=== PATIENT | female | born 1980 | race Caucasian/White ===

== ENCOUNTER 2016-08-14 08:37 | Emergency (ER) | payer BC ==
[~2016-08-14] VITALS: Ht 160 cm; Wt 88.9 kg
[~2016-08-14 08:37] MED LIST: APRISO0.375 GM PO; DELTASONE20 M1 PO; FLONASE16 G1 NS; METFORMIN HCL500 MG PO; MYRBETRIQ25 MG PO; NOHOMEMEDS; PRENATAL TABLE1 EAC3 PO; PROBIOTIC1 EAC3 PO; VITAMIN D2000 INTUN PO; VITAMIN D2000 UNI1 PO
[2016-08-14 09:31] VITALS: BP 121/79
== END 2016-08-14 09:32 | disposition home or self-care (01) ==
LOC: EME 08:37
DX: J11.1 Influenza due to unidentified influenza virus with other respiratory manifestations (principal)
CPT/HCPCS: 71020; 99281; 99283